=== PATIENT | male | born 1970 | race Caucasian/White ===

== ENCOUNTER 2022-08-19 12:44 | Outpatient (CLI) | payer BC | END 2022-08-19 12:45 | disposition home or self-care (01) | LOC: CSHMRI 12:44 | PROVIDERS: ATTEND Podiatrist Foot & Ankle Surgery | DX: M76.72 Peroneal tendinitis, left leg (principal); S86.312A Strain of muscle(s) and tendon(s) of peroneal muscle group at lower leg level, left leg, initial encounter; M79.89 Other specified soft tissue disorders; S93.492A Sprain of other ligament of left ankle, initial encounter ==